=== PATIENT | male | born 1965 | race Caucasian/White ===

== ENCOUNTER 2018-11-01 05:18 | Inpatient (IN) ==
[2018-10-28 17:14] LABS: Appearance,Urine CLEAR; Bilirubin,Urine NEG (NEG); Color,Urine YELLOW; Glucose,Urine (UA) NEGATIVE (NEG); Leukocyte Esterase,Urine NEG /uL (NEG); Protein,Urine NEG (NEG); Urine Blood NEG mg/dL (<0.03); Urobilinogen,Urine NEG (NEG)
[2018-10-28 18:22] LABS: Blood Urea Nitrogen 16 mg/dl (6-20)
[2018-10-28 18:32] LABS: Basophils # (Auto) 0 K/mcL (0.0-0.3); Basophils % (Auto) 0.3 % (0.0-2.0); Eosinophils # (Auto) 0.4 K/mcL (0.0-0.7); Eosinophils % (Auto) 5.6 % (0.0-7.0); Granulocytes % (Auto) 53.2 % (38.0-78.0); Lymphocytes # (Auto) 2.5 K/mcL (1.5-4.8); Lymphocytes % (Auto) 31.4 % (15.5-49.0); Mean Cell Volume 87.6 fL (80.0-100.0); Mean Corpuscular HGB Conc 33.3 g/dL (31.0-36.0); Monocytes # (Auto) 0.8 K/mcL (0.1-0.9); Monocytes % (Auto) 9.5 % (1.0-12.0); Platelet Count 213 K/mcL (140-440); RBC 4.68 M/mcL (4.50-5.90); Red Cell Distribution Width 13.7 % (11.5-14.5)
[2018-10-28 19:45] LABS: Estimated Average Glucose(eAG) 160 mg/dL; Hemoglobin A1C 7.2 % HGB (4.0-6.0)
[2018-11-01] MEDS ORDERED: ACETAMINOPHEN 500 MG TABLET PO SCH (07:00)
[2018-11-01] MEDS ORDERED: PREGABALIN 75 MG CAPSULE PO SCH (07:00)
[2018-11-01] MEDS ORDERED: 0.9 % SODIUM CHLORIDE 9 ML, KETOROLAC 30 MG, ROPIVACAINE HCL/PF 49.5 ML, EPINEPHrine 0.... IJ SCH (07:00)
[2018-11-01] MEDS ORDERED: CELECOXIB 200 MG CAPSULE PO SCH (07:00)
[2018-11-01] MEDS ORDERED: ceFAZolin 1 GM VIAL IV SCH (07:00)
[2018-11-01] MEDS ORDERED: PROPOFOL 200 MG/20 ML VIAL IV ONE (07:35)
[2018-11-01] MEDS ORDERED: ONDANSETRON 4 MG/2 ML VIAL IV ONE (07:35)
[2018-11-01] MEDS ORDERED: TRANEXAMIC ACID 1,000 MG/10 ML VIAL IV ONE ×2 (07:35→09:08)
[2018-11-01] MEDS ORDERED: SUCCINYLCHOLINE 20 MG/ML ML IV ONE (07:35)
[2018-11-01] MEDS ORDERED: fentaNYL 250 MCG/5 ML VIAL IV ONE (07:35)
[2018-11-01] MEDS ORDERED: ROPIVACAINE HCL/PF 20 ML VIAL IJ ONE (07:35)
[2018-11-01] MEDS ORDERED: DEXAMETHASONE 10 MG/ML VIAL IV ONE (07:35)
[2018-11-01] MEDS ORDERED: LIDOCAINE HCL/PF 100 MG/5 ML SYRINGE IV ONE (07:35)
[2018-11-01] MEDS ORDERED: MIDAZOLAM 5 MG/5 ML VIAL IV ONE (07:35)
[2018-11-01] MEDS ORDERED: GLYCOPYRROLATE 0.2 MG/ML VIAL IV ONE (07:35)
[2018-11-01] MEDS ORDERED: MEPERIDINE 25 MG/ML SYRINGE IV PRN (08:57)
[2018-11-01] MEDS ORDERED: GENTAMICIN SULFATE 800 MG/20 ML VIAL IR ONE (08:57)
[2018-11-01] MEDS ORDERED: FLUMAZENIL 0.1 MG/ML ML IV PRN (08:57)
[2018-11-01] MEDS ORDERED: METOPROLOL TARTRATE 5 MG/5 ML VIAL IV PRN (08:57)
[2018-11-01] MEDS ORDERED: IPRATROPIUM/ALBUTEROL 3 ML AMPUL.NEB NEB PRN (08:57)
[2018-11-01] MEDS ORDERED: diphenhydrAMINE 50 MG/ML VIAL IV PRN (08:57)
[2018-11-01] MEDS ORDERED: PROMETHAZINE 25 MG/ML VIAL IV PRN (08:57)
[2018-11-01] MEDS ORDERED: METHOCARBAMOL 1,000 MG/10 ML VIAL IV PRN (08:57)
[2018-11-01] MEDS ORDERED: ePHEDrine 50 MG/ML AMPUL IV PRN (08:57)
[2018-11-01] MEDS ORDERED: HYDROmorphone 2 MG/ML VIAL IV PRN ×2 (08:57→09:08)
[2018-11-01] MEDS ORDERED: ATROPINE SULFATE 0.4 MG/ML VIAL IV PRN (08:57)
[2018-11-01] MEDS ORDERED: NALOXONE HCL 0.4 MG/ML VIAL IV PRN (08:57)
[2018-11-01] MEDS ORDERED: ONDANSETRON 4 MG/2 ML VIAL IV PRN ×2 (08:57→09:08)
[2018-11-01] MEDS ORDERED: ACETAMINOPHEN 325 MG TABLET PO PRN (09:08)
[2018-11-01] MEDS ORDERED: TEMAZEPAM 15 MG CAPSULE PO PRN (09:08)
[2018-11-01] MEDS ORDERED: POLYETHYLENE GLYCOL 3350 17 GM PACKET PO PRN (09:08)
[2018-11-01] MEDS ORDERED: BISACODYL 10 MG SUPP.RECT PR PRN (09:08)
[2018-11-01] MEDS ORDERED: MAGNESIUM HYDROXIDE 30 ML ORAL.SUSP PO PRN (09:08)
[2018-11-01] MEDS ORDERED: FLEETS ADULT ENEMA PR PRN (09:08)
[2018-11-01] MEDS ORDERED: BENZOCAINE/MENTHOL 1 LOZENGE PO PRN (09:08)
--- NOTE | 2018-11-01 09:08 | Brief Operative Note ---
Date of procedure: 11/01/18 Pre-op diagnosis: right knee djd Post-op diagnosis: same Procedure: right tka with gurjit robot Grafts/Implants: Yes Anesthesia: GETA Complications: none Surgeon: Eugene Conti Transition Nurse: Harjinder Umana Tourniquet Time (Minutes): 65 Specimens Removed/Pathology: none sent Condition: stable Disposition: PACU
[2018-11-01] MEDS ORDERED: ALCAFTADINE BOTH EYES PRN (09:12)
[2018-11-01] MEDS ORDERED: CLINDAMYCIN PHOSPHATE TP PRN (09:12)
[2018-11-01] MEDS ORDERED: CLOBETASOL PROPIONATE TP SCH (09:15)
[2018-11-01] MEDS ORDERED: KETOCONAZOLE 2% TOP CRM 15GM TUBE TOPICAL SCH (09:15)
--- NOTE | 2018-11-01 09:36 | Operative Note ---
DATE OF OPERATION: 11/01/2018 PREOPERATIVE DIAGNOSIS: Right knee degenerative arthritis. POSTOPERATIVE DIAGNOSIS: Right knee degenerative arthritis. PROCEDURE: Right robotic total knee arthroplasty. SURGEON: Eugene Conti MD PROOF INSPECTOR: Harjinder Umana PA-C. ANESTHESIA: General LMA anesthesia. COMPLICATIONS: None. DESCRIPTION OF PROCEDURE: The patient was brought to the operating room and put to sleep with general LMA anesthesia. Once asleep, the patient had the right leg sterilely prepped and draped in the usual sterile fashion. A timeout was performed and we confirmed this as the operative site. Once done, we then proceeded with a [place]umfeld robot total knee after showing severe arthritis mostly of the medial compartment, but throughout. We made a midline incision, a mid vastus approach and exposed the joint, placed our pins above and below the knee and registered the center of hip rotation. Once this was done, we registered the medial and lateral malleoli. The intraarticular pins and 30 points on the femur and the tibia were registered. We balanced the knee to make it perfectly aligned. Once this was done, we then brought in the robot and made our bony cuts. Once perfectly cut and we removed spurs posteriorly, we then trialed the components, a size 11 insert with a 5 femur and size 6 tibial baseplate fit perfectly. At this point, we made sure it had full motion 0 degrees extension, 135 degrees of flexion once this was done and equally balanced in flexion and extension with 1 mm of play. Once done, we then cemented into place the components. Excess cement was removed and we prepared the patella. It measured 24 mm in total thickness and then this was resurfaced with a 36 mm round patellar button. Once done, we irrigated thoroughly and cemented into place the patellar component and irrigated thoroughly. We placed the knee at 45 degrees while the cement dried and thoroughly irrigated once more. The patella tracked perfectly. Full range of motion was easily achieved. We irrigated and released the PCL as it was a little tight as it went into flexion. We irrigated thoroughly. The dished insert will accommodate the PCL loss and help with her range of motion. Once done, we then deflated the tourniquet at approximately 65 minutes and with this, we then closed the mid vastus approach with #1 Stratafix. Once this was done, we then irrigated once more, closed the skin with 2-0 Vicryl and adhesive closure. Sterile bandage was applied. The skin closed nicely. There was no complication. Sterile bandage was applied. RBH:[email or web address] Job ID: [id number] Doc ID: [id number] Eugene Conti MD
[2018-11-01] MEDS: fentaNYL 100 MCG/2 ML VIAL IV PRN ×2 (09:58→10:11)
--- NOTE | 2018-11-01 10:23 | XRay Report ---
CLINICAL INFORMATION: Post-Op Total Knee COMPARISON: None. FINDINGS: Total knee prosthesis is anatomically aligned. Moderate periarticular soft tissue swelling is noted with moderate-sized effusion in the suprapatellar bursa. No osseous abnormality. IMPRESSION: Expected postoperative soft tissue swelling Interpreted and Authenticated by: Benjamin Moss 11/01/18
[2018-11-01] MEDS: HYDROcodone/APAP 10/325MG TABLET PO PRN ×4 (10:45→20:56)
[2018-11-01] MEDS: 0.45 % SODIUM CHLORIDE 1,000 ML IV SCH ×2 (10:46→23:19)
[2018-11-01] MEDS: KETOROLAC 15 MG/ML VIAL IV SCH ×3 (12:04→23:26)
[2018-11-01] MEDS: metFORMIN 500 MG TABLET PO SCH ×2 (12:04→17:01)
[2018-11-01] MEDS: INSULIN LISPRO 1 UNIT/0.01 ML UNIT SQ SCH ×7 (12:52→20:20)
[2018-11-01] MEDS: ceFAZolin 1 GM VIAL IV SCH ×2 (15:14→22:52)
[2018-11-01] MEDS: 0.9 % SODIUM CHLORIDE 10 ML SYRINGE IV SCH ×2 (15:14→20:22)
[2018-11-01] MEDS: FERROUS SULFATE 325 MG TABLET PO SCH (17:01)
[2018-11-01] MEDS: EXENATIDE 10 MCG SC SCH (17:06)
[2018-11-01] MEDS ORDERED: metFORMIN 500 MG TABLET PO SCH (17:30)
[2018-11-01] MEDS ORDERED: INSULIN LISPRO 1 UNIT/0.01 ML UNIT SQ PRN (18:00)
[2018-11-01] MEDS: ASPIRIN 325 MG ENTERIC COATED TABLET PO SCH (20:19)
[2018-11-01] MEDS: DOCUSATE SODIUM 100 MG CAPSULE PO SCH (20:19)
[2018-11-01] MEDS: NADOLOL 20 MG TABLET PO SCH (20:19)
[2018-11-01] MEDS: MINOCYCLINE 100 MG CAPSULE PO SCH (20:25)
[2018-11-01] MEDS ORDERED: ATORVASTATIN 20 MG TABLET PO SCH (21:00)
[2018-11-01] MEDS ORDERED: SENNOSIDES 1 TABLET PO SCH (21:00)
[2018-11-01] MEDS ORDERED: INSULIN GLARGINE, HUMAN 1 UNIT/0.01 ML SQ SCH (21:00)
[2018-11-01] MEDS ORDERED: TRAVOPROST OPHTH DROPS BOTTLE 2.5ML OU SCH (21:00)
[2018-11-02] MEDS: HYDROcodone/APAP 10/325MG TABLET PO PRN ×3 (01:20→09:26)
[2018-11-02] MEDS: 0.45 % SODIUM CHLORIDE 1,000 ML IV SCH (05:26)
[2018-11-02] MEDS: 0.9 % SODIUM CHLORIDE 10 ML SYRINGE IV SCH (05:26)
[2018-11-02] MEDS: KETOROLAC 15 MG/ML VIAL IV SCH ×2 (05:27→11:49)
--- NOTE | 2018-11-02 07:24 | Orthopedic Progress Note ---
Subjective Patient information: Note initiated : 11/02/18 at 7:23 am Service Date, if different from initiated Date: [] Patient: Juanpablo Christiansen 53 y/o M admitted on 11/01/18 for Right Robotic Total Knee Arthroplasty. Chief Complaint: [Pt is stable this morning on post operative day 1 without any significant concerns or complaints. Patients vital signs have remained stable. Patients dressing is dry and is grossly intact from a neurova scular and motor standpoint. Patients 10 point ROS is otherwise negative. ] Objective Vital signs: Vital Signs Temp Pulse Resp BP Pulse Ox 11/02/18 07:23 98 11/02/18 05:31 98 11/02/18 03:08 97.8 F 71 16 111/70 98 11/02/18 01:23 93 11/01/18 23:00 97.5 F 83 16 107/66 95 11/01/18 20:08 95 11/01/18 19:57 97.5 F 91 H 14 97/62 95 11/01/18 15:58 96.7 F L 73 16 125/74 94 11/01/18 12:31 76 124/72 92 11/01/18 12:01 68 125/72 95 11/01/18 11:32 67 123/73 95 11/01/18 11:16 64 125/86 94 11/01/18 11:02 64 117/69 94 11/01/18 10:46 68 129/71 93 11/01/18 10:31 62 121/77 93 11/01/18 10:19 97.9 F 61 12 127/83 94 11/01/18 10:04 97.8 F 67 14 112/72 94 11/01/18 09:49 97.7 F 62 15 133/73 94 11/01/18 09:44 63 16 126/72 96 11/01/18 09:39 65 24 H 126/72 96 11/01/18 09:34 97.4 F 61 16 136/74 94 Intake and Output 11/01/18 11/02/18 11/02/18 21:59 05:59 13:59 Intake Total 800 / 2750 1950 / 2750 Output Total 500 / 1150 Balance 800 / 1600 1450 / 1600 Intake: IV 1000 / 1000 Sodium Chloride 0.45% 1,000 ml 1000 / 1000 @ 100 mls/hr IV .Q10H EULOGIO Rx#: [id number] Oral 800 / 1750 950 / 1750 Output: Void Amount 500 / 1100 Other: Meal Lunch Percent of Meal Consumed 100% Urine Appearance Clear Urine Color Dark Yellow Urine Odor Normal # Voids 1 Weight 270 lb Intake & Output: Intake & Output 11/01/18 11/02/18 11/02/18 21:59 05:59 13:59 Intake Total 800 / 2750 1950 / 2750 Output Total 500 / 1150 Balance 800 / 1600 1450 / 1600 Weight 270 lb Intake: IV 1000 / 1000 Sodium Chloride 0.45% 1,000 ml 1000 / 1000 @ 100 mls/hr IV .Q10H EULOGIO Rx#: [id number] Oral 800 / 1750 950 / 1750 Output: Void Amount 500 / 1100 Other: Meal Lunch Percent of Meal Consumed 100% Urine Appearance Clear Urine Color Dark Yellow Urine Odor Normal # Voids 1 Incision: Yes healing Incision clean and dry: Yes Dressing: Yes clean Weight bearing status: full Neurological exam IM: Yes motor sensory intact, Yes neurovascular intact Extremities exam IM: Yes Foot pink and warm, Yes neurovascular intact - Labs CBC & BMP: 11/02/18 04:35 10/28/18 15:40 Labs: 11/02/18 10/28/18 04:35 15:40 Hgb 13.6 Hct 34.2 L 41.0 Assessment and Plan (1) Hx of total knee arthroplasty The patient has been educated regarding dressing care, Physical Therapy recommendations, home exercises, restrictions, and follow up appointments. The patient has had all necessary DME prescribed. The patient has remained relatively stable during their hospital course. Leave Dermabond patch intact until followup Status: Acute
--- NOTE | 2018-11-02 07:31 | Discharge Summary ---
Ortho Discharge - TKA - Patient Instructions Diet: Regular Diet Activity: activity as tolerated, weight bearing as tolerated Total Knee Protocol: For Total Knee: Start ROM DENIS with stationary bike or rocking chair. Work on gaining full extension of knee. Posterior dislocation precautions provided. Hip abductor strengthening and gait training instructions provided. Apply Cryocuff as instructed. Dressing Care: May shower in 2 days Patient Education: Total Knee Replacement (DC) - Problem Maintenance (1) Hx of total knee arthroplasty Status: Acute - Follow Up Plan Follow Up Appointments: Harjinder Umana PA-C [Physician Head Usher] - 11/16/18 2:20 pm Disposition: Home, Self-Care Prognosis: Good Rehab Potential: Good I certify that the patient requires SNF services: No Overall status at discharge: patient is progressing back to baseline - Orders For Discharge Prescriptions: Aspirin [Ecotrin] 325 mg PO BID #60 tab.ec Docusate Sodium [Colace] 100 mg PO BID #60 capsule HYDROcodone/APAP 10/325MG [[place] 10-325Mg] 1 - 2 tab PO Q4HP PRN #75 tab PRN Reason: Pain Level 3-6
[2018-11-02] MEDS: INSULIN LISPRO 1 UNIT/0.01 ML UNIT SQ SCH ×4 (07:51→11:35)
[2018-11-02] MEDS: ASPIRIN 325 MG ENTERIC COATED TABLET PO SCH (07:52)
[2018-11-02] MEDS: NADOLOL 20 MG TABLET PO SCH (07:53)
[2018-11-02] MEDS: FERROUS SULFATE 325 MG TABLET PO SCH (07:53)
[2018-11-02] MEDS: EXENATIDE 10 MCG SC SCH (07:54)
[2018-11-02] MEDS: MINOCYCLINE 100 MG CAPSULE PO SCH (07:57)
[2018-11-02] MEDS: DOCUSATE SODIUM 100 MG CAPSULE PO SCH (08:02)
[2018-11-02] MEDS ORDERED: FISH OIL 1,000 MG CAPSULE PO SCH (09:00)
[2018-11-02] MEDS ORDERED: CYANOCOBALAMIN (VITAMIN B-12) 500 MCG TABLET PO SCH (09:00)
[2018-11-02] MEDS ORDERED: POTASSIUM PO SCH (09:00)
[2018-11-02] MEDS ORDERED: FLUTICASONE PROPIONATE SPRAY.NAS NS SCH (09:00)
[2018-11-02] MEDS ORDERED: MAGNESIUM ASPARTATE PO SCH (09:00)
[2018-11-02] MEDS ORDERED: NON FORMULARY MEDICATION 1 DOSE MISCELL (Aspirin [Ecotrin] 81 MG) PO SCH (09:00)
[2018-11-02] MEDS ORDERED: LISINOPRIL 10 MG TABLET PO SCH (09:00)
[2018-11-02] MEDS: metFORMIN 500 MG TABLET PO SCH (11:37)
== END 2018-11-02 12:00 | disposition home or self-care (01) | DRG 470 ==
LOC: MEDSUR 05:18
PROVIDERS: ADMIT Orthopaedic Surgery; ATTEND Orthopaedic Surgery

== ENCOUNTER 2019-07-04 04:55 | Inpatient (IN) ==
[2019-06-29 17:32] LABS: Basophils # (Auto) 0 K/mcL (0.0-0.3); Basophils % (Auto) 0.4 % (0.0-2.0); Eosinophils # (Auto) 0.3 K/mcL (0.0-0.7); Eosinophils % (Auto) 4.1 % (0.0-7.0); Granulocytes % (Auto) 49.2 % (38.0-78.0); Hematocrit 44.2 % (41.0-55.0); Hemoglobin 14.4 g/dL (13.5-16.5); Lymphocytes # (Auto) 2.5 K/mcL (1.5-4.8); Mean Cell Volume 88.2 fL (80.0-100.0); Mean Corpuscular HGB Conc 32.6 g/dL (31.0-36.0); Mean Platelet Volume 8.4 fL (7.4-10.4); Monocytes # (Auto) 0.7 K/mcL (0.1-0.9); Monocytes % (Auto) 10.3 % (1.0-12.0); Platelet Count 223 K/mcL (140-440); RBC 5.01 M/mcL (4.50-5.90); WBC 6.8 K/mcL (4.5-11.0)
[2019-06-29 17:35] LABS: INR 0.8 (0.9-1.1); Prothrombin Time 11.5 sec (11.9-14.5)
[2019-06-29 17:49] LABS: Blood Urea Nitrogen 17 mg/dl (6-20); Calcium 9.9 mg/dl (8.6-10.4); Carbon Dioxide 22 mmol/L (22-30); Chloride 101 mmol/L (96-108); Glomerular Filtration Rate 103; Glucose 94 mg/dL (70-105)
[2019-06-29 18:30] LABS: Appearance,Urine CLEAR; Bilirubin,Urine NEG (NEG); Color,Urine YELLOW; Culture Indicated,Urine NO; Glucose,Urine (UA) NEGATIVE (NEG); Ketones,Urine NEG (NEG); Leukocyte Esterase,Urine NEG /uL (NEG); Nitrate,Urine NEG (NEG); Protein,Urine NEG (NEG); Specific Gravity,Urine 1.017 (1.000-1.035); Urine Blood NEG mg/dL (<0.03); Urobilinogen,Urine NEG (NEG)
[2019-06-29 20:41] LABS: Estimated Average Glucose(eAG) 146 mg/dL; Hemoglobin A1C 6.7 % HGB (4.0-6.0)
[2019-07-04] MEDS ORDERED: SCOPOLAMINE 1 PATCH PATCH TOPICAL PRN (05:00)
[2019-07-04] MEDS ORDERED: IPRATROPIUM/ALBUTEROL 3 ML AMPUL.NEB NEB PRN ×2 (05:00→08:54)
[2019-07-04] MEDS ORDERED: ceFAZolin 3 GM in DEXTROSE 5% IN WATER 50 ML IV SCH (06:00)
[2019-07-04] MEDS ORDERED: ACETAMINOPHEN 500 MG TABLET PO SCH (06:00)
[2019-07-04] MEDS ORDERED: CELECOXIB 200 MG CAPSULE PO SCH (06:00)
[2019-07-04] MEDS ORDERED: PREGABALIN 75 MG CAPSULE PO SCH (06:00)
[2019-07-04] MEDS ORDERED: 0.9 % SODIUM CHLORIDE 9 ML, KETOROLAC 30 MG, ROPIVACAINE HCL/PF 49.5 ML, EPINEPHrine 0.... IJ SCH (06:00)
[2019-07-04] MEDS ORDERED: GENTAMICIN SULFATE 800 MG/20 ML VIAL IR ONE (07:14)
[2019-07-04] MEDS ORDERED: ePHEDrine 50 MG/ML AMPUL IV ONE (07:30)
[2019-07-04] MEDS ORDERED: TRANEXAMIC ACID 1,000 MG/10 ML VIAL IV ONE ×2 (07:30→08:55)
[2019-07-04] MEDS ORDERED: LIDOCAINE HCL/PF 100 MG/5 ML SYRINGE IV ONE (07:30)
[2019-07-04] MEDS ORDERED: ONDANSETRON 4 MG/2 ML VIAL IV ONE (07:30)
[2019-07-04] MEDS ORDERED: PROPOFOL 200 MG/20 ML VIAL IV ONE (07:30)
[2019-07-04] MEDS ORDERED: DEXAMETHASONE 10 MG/ML VIAL IV ONE (07:30)
[2019-07-04] MEDS ORDERED: fentaNYL 250 MCG/5 ML VIAL IV ONE (07:30)
[2019-07-04] MEDS ORDERED: GLYCOPYRROLATE 0.2 MG/ML VIAL IV ONE (07:30)
[2019-07-04] MEDS ORDERED: MIDAZOLAM 5 MG/5 ML VIAL IV ONE (07:30)
--- NOTE | 2019-07-04 08:44 | XRay Report ---
CLINICAL INFORMATION: right total hip COMPARISON: None. FINDINGS: Intraoperative film shows a femoral stem template and prosthetic acetabulum to be anatomic location. Mild degenerative change left hip IMPRESSION: Intraoperative film as described Interpreted and Authenticated by: Benjamin Moss 07/04/19
[2019-07-04] MEDS ORDERED: PROMETHAZINE 25 MG/ML VIAL IV PRN (08:54)
[2019-07-04] MEDS ORDERED: FLUMAZENIL 0.1 MG/ML ML IV PRN (08:54)
[2019-07-04] MEDS ORDERED: NALOXONE HCL 0.4 MG/ML VIAL IV PRN (08:54)
[2019-07-04] MEDS ORDERED: MEPERIDINE 25 MG/ML SYRINGE IV PRN (08:54)
[2019-07-04] MEDS ORDERED: BENZOCAINE/MENTHOL 1 LOZENGE PO PRN ×2 (08:54→08:55)
[2019-07-04] MEDS ORDERED: ONDANSETRON 4 MG/2 ML VIAL IV PRN ×2 (08:54→08:55)
[2019-07-04] MEDS ORDERED: LACTATED RINGERS 250 ML IV PRN (08:54)
[2019-07-04] MEDS ORDERED: diphenhydrAMINE 50 MG/ML VIAL IV PRN (08:54)
[2019-07-04] MEDS ORDERED: KETOROLAC 15 MG/ML VIAL IV PRN (08:55)
[2019-07-04] MEDS ORDERED: MAGNESIUM HYDROXIDE 30 ML ORAL.SUSP PO PRN (08:55)
[2019-07-04] MEDS ORDERED: ACETAMINOPHEN 325 MG TABLET PO PRN (08:55)
[2019-07-04] MEDS ORDERED: POLYETHYLENE GLYCOL 3350 17 GM PACKET PO PRN (08:55)
[2019-07-04] MEDS ORDERED: TEMAZEPAM 15 MG CAPSULE PO PRN (08:55)
[2019-07-04] MEDS ORDERED: BISACODYL 10 MG SUPP.RECT PR PRN (08:55)
[2019-07-04] MEDS ORDERED: FLEETS ADULT ENEMA PR PRN (08:55)
[2019-07-04] MEDS ORDERED: HYDROmorphone 2 MG/ML VIAL IV PRN (08:55)
--- NOTE | 2019-07-04 08:55 | Brief Operative Note ---
Date of procedure: 07/04/19 Pre-op diagnosis: right hip djd Post-op diagnosis: same Procedure: right total hip cementless wilmer Findings: right hip severe djd Surgeon: Eugene Conti Permastone Applicator: Harjinder Umana Estimated blood loss (cc): 100 Specimens Removed/Pathology: none sent Condition: stable Disposition: PACU
[2019-07-04] MEDS ORDERED: ALCAFTADINE BOTH EYES PRN (08:58)
[2019-07-04] MEDS ORDERED: CLINDAMYCIN PHOSPHATE TOPICAL PRN (08:58)
[2019-07-04] MEDS ORDERED: BACLOFEN 10 MG TABLET PO PRN (08:58)
[2019-07-04] MEDS ORDERED: FLUTICASONE PROPIONATE SPRAY.NAS NS PRN (08:58)
[2019-07-04] MEDS ORDERED: EXENATIDE SUB-Q SCH (09:00)
[2019-07-04] MEDS ORDERED: NON FORMULARY MEDICATION 1 DOSE MISCELL (Aspirin [Ecotrin] 81 MG) PO SCH (09:00)
[2019-07-04] MEDS ORDERED: MAGNESIUM ASPARTATE PO SCH (09:00)
[2019-07-04] MEDS ORDERED: 0.45 % SODIUM CHLORIDE 1,000 ML IV SCH (09:00)
[2019-07-04] MEDS ORDERED: KETOCONAZOLE 2% TOP CRM 15GM TUBE TOPICAL SCH (09:00)
[2019-07-04] MEDS ORDERED: DOCUSATE SODIUM 100 MG CAPSULE PO SCH (09:00)
[2019-07-04] MEDS ORDERED: POTASSIUM PO SCH (09:00)
[2019-07-04] MEDS ORDERED: LISINOPRIL 10 MG TABLET PO SCH (09:00)
[2019-07-04] MEDS ORDERED: LACTATED RINGERS 1,000 ML IV SCH (09:00)
[2019-07-04] MEDS ORDERED: ASPIRIN 325 MG ENTERIC COATED TABLET PO SCH (09:00)
--- NOTE | 2019-07-04 09:09 | Operative Note ---
DATE OF OPERATION: 07/04/2019 PREOPERATIVE DIAGNOSIS: Right hip degenerative arthritis, severe. POSTOPERATIVE DIAGNOSIS: Right hip degenerative arthritis, severe. PROCEDURE: Right total hip arthroplasty. SURGEON: Eugene Conti M.D. SHOEMAKER CUSTOM: Harjinder Umana PA-C. The PA's assistance was required for the safe and efficient completion of the entire case. This provider's expertise and technical skill were required throughout the case. The PA assisted with preoperative coordination, intraoperative retraction, wound closure, dressing and splint application, as well as postoperative documentation and care coordination. ANESTHESIA: General LMA anesthesia. COMPLICATIONS: None. DESCRIPTION OF PROCEDURE: The patient was brought to the operating room and put to sleep with general LMA anesthesia. Once asleep, the patient had the right hip sterilely prepped and draped in the usual sterile fashion. This was confirmed as the operative site with preop antibiotics and tranexamic acid given. Once done, we made a superior approach to the right hip. This exposed the gluteus mark which was then incised in a linear fashion. Once done, we then exposed the capsule and the piriformis and obturator internus were released. These structures were tagged and then we performed a right total hip arthroplasty. With this, we were able to identify the ball, after dislocating the ball and seeing severe arthritis. From the center of hip rotation we made the neck cut 36 mm on the neck inferiorly. Once done, we irrigated thoroughly and subluxed the hip anteriorly. We were able to ream up to the size of a 58 cup. A 58 cup was placed in 40 degrees of inclination and 20 degrees of anteversion. Once done, we placed a hooded liner into the cup with one screw that kept the cup stable with a 35 mm screw. We then proceeded with broaching on the femur. We lateralized and then broached up to the size 7. We did ream distal because of the tightness of the canal distally. We were able to get to a size 7 stem. We took another x-ray to seat the stem further. This seemed to match very nicely. We irrigated thoroughly and then we were able to place a 7 stem with a negative 2.5 neck length with a 36 mm head. This reduced, gave excellent range of motion and stability throughout. We irrigated thoroughly and then closed the fascial layer with #1 Stratafix. We closed the skin with #1 Stratafix and with 2-0 Vicryl and adhesive material. Sterile bandage was applied. The patient tolerated this well. Blood loss was about 150 mL. MARISOL:[email or web address] Job ID: [id number] Doc ID: [id number] Eugene Conti MD
[2019-07-04] MEDS: fentaNYL 100 MCG/2 ML VIAL IV PRN ×3 (09:29→09:43)
--- NOTE | 2019-07-04 09:51 | XRay Report ---
CLINICAL INFORMATION: Post-op Total Hip COMPARISON: None. FINDINGS: Right total hip prostheses is anatomically aligned. No osseous abnormality. There is mild degenerative change in both SI and left hip joints. IMPRESSION: Right total hip prostheses is anatomically aligned. Interpreted and Authenticated by: Benjamin Moss 07/04/19
[2019-07-04] MEDS: HYDROcodone/APAP 10/325MG TABLET PO PRN ×3 (11:46→16:54)
[2019-07-04] MEDS: metFORMIN 500 MG TABLET PO SCH ×2 (12:01→16:54)
[2019-07-04] MEDS ORDERED: NADOLOL 20 MG TABLET PO SCH (14:00)
[2019-07-04] MEDS ORDERED: ATORVASTATIN 20 MG TABLET PO SCH (14:00)
[2019-07-04] MEDS ORDERED: 0.9 % SODIUM CHLORIDE 10 ML SYRINGE IV SCH (14:00)
[2019-07-04] MEDS ORDERED: ceFAZolin 1 GM VIAL IV SCH (15:00)
--- NOTE | 2019-07-04 17:10 | Discharge Summary ---
Ortho Discharge - DENIS - Patient Instructions Diet: Regular Diet Activity: activity as tolerated, weight bearing as tolerated Total Hip Protocol: Follow activity instructions as provided by Physical Therapy. Dressing Care: May shower in 2 days - Follow Up Plan Follow Up Appointments: Harjinder Umana PA-C [Physician Curtain [employer]] - 07/19/19 10:50 am Disposition: Home, Self-Care Plan of Treatment: dc home Prognosis: Fair Rehab Potential: Good (dc home) I certify that the patient requires SNF services: No Overall status at discharge: patient is progressing back to baseline - Orders For Discharge Prescriptions: HYDROcodone/APAP 10/325MG [[place] 10-325Mg] 10 - 20 mg PO Q4HP PRN #60 tab PRN Reason: Pain Level 3-6 Additional Discharge Orders: Physical Therapy at Discharge - DENIS Location: None Selected Toilet Riser Discharge Order Location: None Selected
[2019-07-04] MEDS ORDERED: TRAVOPROST OPHTH DROPS BOTTLE 2.5ML OU SCH (21:00)
[2019-07-04] MEDS ORDERED: MINOCYCLINE 100 MG CAPSULE PO SCH (21:00)
[2019-07-04] MEDS ORDERED: INSULIN GLARGINE, HUMAN 1 UNIT/0.01 ML SQ SCH (21:00)
[2019-07-04] MEDS ORDERED: SENNOSIDES 1 TABLET PO SCH (21:00)
[2019-07-05] MEDS ORDERED: FISH OIL 1,000 MG CAPSULE PO SCH (09:00)
[2019-07-05] MEDS ORDERED: CYANOCOBALAMIN (VITAMIN B-12) 500 MCG TABLET PO SCH (09:00)
[2019-07-05] MEDS ORDERED: COLCHICINE 0.6 MG TABLET PO SCH (09:00)
== END 2019-07-04 18:25 | disposition home or self-care (01) | DRG 470 ==
LOC: MEDSUR 04:55
PROVIDERS: ADMIT Orthopaedic Surgery; ATTEND Orthopaedic Surgery